=== PATIENT | female | born 1950 | race Hispanic/Latino ===

== ENCOUNTER 2019-03-25 23:18 | Emergency (ER) | payer OTHER ==
[2019-03-25 23:48] LABS: RAPID GROUP A STREP NEGATIVE (NEGATIVE)
[2019-03-25] MEDS ORDERED: IBUPROFEN 600 MG TABLET ONE (23:56)
== END 2019-03-26 00:13 | disposition home or self-care (01) ==
LOC: EDH 23:18
DX: H92.01 Otalgia, right ear (principal); J02.9 Acute pharyngitis, unspecified; E11.9 Type 2 diabetes mellitus without complications; I10 Essential (primary) hypertension; E07.9 Disorder of thyroid, unspecified; Z88.0 Allergy status to penicillin; Z79.4 Long term (current) use of insulin
CPT/HCPCS: 87804; 87880